=== PATIENT | female | born 1935 | race Caucasian/White ===

== ENCOUNTER 2019-03-11 21:12 | Observation (INO) | payer MEDICARE, BC ==
[2019-03-11] MEDS ORDERED: IPRATROPIUM-ALBUTEROL 3 ML NEB INHALATION STA (21:45)
[2019-03-11 22:17] LABS: Basophils % (A) 0 %; Eosinophils # (A) 0.1 k/uL (0-0.7); Eosinophils % (A) 2 %; HCT 43.4 % (34.0-46.0); HGB 13.6 gm/dL (11.4-16.0); Lymphocytes # (A) 1.1 k/uL (1.0-4.8); Lymphocytes % (A) 22 %; MCH 29.3 pg (25.0-35.0); MCHC 31.3 g/dL (31.0-37.0); MCV 93.3 fL (80.0-100.0); Mean Platelet Volume 6.3; Monocytes # (A) 0.3 k/uL (0-1.0); Monocytes % (A) 6 %; Neutrophils # (A) 3.4 k/uL (1.3-7.7); Neutrophils % (A) 68 %; Platelet Count 168 k/uL (150-450); RBC 4.65 m/uL (3.80-5.40); RDW 14.5 % (11.5-15.5); WBC 4.9 k/uL (3.8-10.6)
[2019-03-11 22:18] LABS: Albumin 3.4 g/dL (3.5-5.0); Calcium 9.3 mg/dL (8.4-10.2); Magnesium 2.2 mg/dL (1.6-2.3); Potassium 4.2 mmol/L (3.5-5.1); Total Bilirubin 0.5 mg/dL (0.2-1.3); Total Protein 5.6 g/dL (6.3-8.2)
--- NOTE | 2019-03-11 22:18 | ED ---
Chest Pain HPI - General Chief Complaint: Chest Pain Stated Complaint: SOB, Chest Pain Time Seen by Provider: 03/11/19 21:29 Source: patient, family Mode of arrival: wheelchair Limitations: no limitations - History of Present Illness Initial Comments: The patient is an 83-year-old female presents the emergency room with complaint of chest pain. She states this has been going on for 2 weeks. It has been constant and progressive in nature. Is located substernally without radiation. Any palliative or provocative factors. She has no previous cardiac history. Does admit that it makes her feel short of breath. She feels as if there is an "elephant sitting on her chest". She states that she has had previous stress testing and a catheterization. The last cath was greater than 10 years ago. She does have a history of asthma thought it was her asthma acting up. Her inhalers have not provided any relief. She denies associated nausea, vomiting or diaphoresis. The ripping or tearing sensation to her back. Denies a pleuritic chest pain. Does admit to bilateral lower extremity swelling. She did see her primary care physician or place her on Lasix. She has been taking the medications as directed. She has had worsening incontinence because of the medication. She denies hematuria or dysuria. Denies any rectal incontinence. No report of any fevers or chills. Denies a history of congestive heart failure. Her primary care physician did recommend that she see a pesticide control inspector. - Related Data Home Medications Medication Instructions Recorded Confirmed Cholecalciferol [Vitamin D3] 2,000 unit PO DAILY 12/05/15 03/11/19 HYDROcodone/APAP 5-325MG [[place] 1 tab PO Q4-6H PRN 12/05/15 03/11/19 5-325] Omeprazole [PriLOSEC] 20 mg PO DAILY 12/05/15 03/11/19 traMADol HCL [Tramadol HCl] 50 mg PO BID PRN 12/06/15 03/11/19 ALPRAZolam [Xanax] 0.25 mg PO HS PRN 03/11/19 03/11/19 Albuterol Inhaler [Ventolin Hfa 2 puff INHALATION RT-Q6H PRN 03/11/19 03/11/19 Inhaler] Albuterol Nebulized [Ventolin 2.5 mg INHALATION RT-Q6H PRN 03/11/19 03/11/19 Nebulized] Aspirin [Adult Low Dose Aspirin EC] 81 mg PO DAILY PRN 03/11/19 03/11/19 Oxybutynin Chloride 5 mg PO BID 03/11/19 03/11/19 Allergies Allergy/AdvReac Type Severity Reaction Status Date / Time adhesive tape AdvReac Unknown Verified 03/11/19 21:57 Review of Systems ROS Statement: Those systems with pertinent positive or pertinent negative responses have been documented in the HPI. ROS Other: All systems not noted in ROS Statement are negative. EKG Findings - EKG Comments: EKG Findings:: EKG demonstrates normal sinus rhythm with ventricular rate of 88. ME interval 128. QRS 86. QTC of 433. There are Q waves noted in leads 3 and [address]VF. No acute ST segment elevations or depressions concerning for ischemic changes. A repeat EKG is performed at 12:30. EKG continues to demonstrate a normal sinus rhythm with ventricular rate of 90. ME interval 134, QRS 88 and a QTC of 457. There are no elevations or depressions concerning for ischemic changes Past Medical History Past Medical History: Asthma, GERD/Reflux, Hypertension, Osteoarthritis (OA) History of Any Multi-Drug Resistant Organisms: None Reported Past Surgical History: Back Surgery, Cholecystectomy, Hysterectomy, Joint Replacement, Orthopedic Surgery Additional Past Surgical History / Comment(s): bilateral hip replacements, bilateral shoulder replacements, bilateral knee replacements, back surgery, SHOULDER, BILAT KNEE bilateral cataract surgery left hand surgery, carpal tunnel surgery Past Anesthesia/Blood Transfusion Reactions: Motion Sickness, Postoperative Nausea & Vomiting (PONV) Past Psychological History: No Psychological Hx Reported Smoking Status: Never smoker Past Alcohol Use History: None Reported Past Drug Use History: None Reported - Past Family History Mother Family Medical History: Coronary Artery Disease (CAD) General Exam Limitations: no limitations General appearance: alert, in no apparent distress Head exam: Present: atraumatic, normocephalic, normal inspection Eye exam: Present: normal appearance, PERRL, EOMI. Absent: scleral icterus, co njunctival injection, periorbital swelling ENT exam: Present: normal exam, mucous membranes moist Neck exam: Present: normal inspection. Absent: tenderness, meningismus, lymphadenopathy Respiratory exam: Present: normal lung sounds bilaterally. Absent: respiratory distress, wheezes, rales, rhonchi, stridor Cardiovascular Exam: Present: regular rate, normal rhythm, normal heart sounds. Absent: systolic murmur, diastolic murmur, rubs, gallop, clicks GI/Abdominal exam: Present: soft, normal bowel sounds. Absent: distended, tenderness, guarding, rebound, rigid Extremities exam: Present: normal inspection, full ROM, normal capillary refill. Absent: tenderness, pedal edema, joint swelling, calf tenderness Back exam: Present: normal inspection Neurological exam: Present: alert, oriented X3, CN II-XII intact Psychiatric exam: Present: normal affect, normal mood Skin exam: Present: warm, dry, intact, normal color. Absent: rash Course Vital Signs 03/11/19 03/11/19 03/11/19 21:18 22:12 22:18 Temperature 98.6 F Pulse Rate 97 75 83 Respiratory 22 Rate Blood Pressure 142/77 O2 Sat by Pulse 98 Oximetry 03/11/19 03/12/19 03/12/19 23:21 01:00 02:00 Temperature 98.5 F 98.5 F Pulse Rate 80 74 74 Respiratory 20 16 20 Rate Blood Pressure 130/76 147/79 113/74 O2 Sat by Pulse 97 97 97 Oximetry - Reevaluation(s) Reevaluation #1: The patient is reevaluated and continues to have chest pain. She is started on a nitro drip and a repeat EKG is performed. Repeat EKG demonstrates Q waves in lead 3 and aVF. Continues to demonstrate a normal sinus rhythm with a ventricular rate of 90. ME interval 134 QRS 88 QTC of 457. No acute ST segment elevations or depressions. 03/12/19 00:30 Chest Pain MDM - Differential Diagnosis ACS - MDM The patient was seen by myself in room 7. She is immediately hooked up to continuous pulse ox and cardiac monitoring. She did take 324 mgrams of aspirin before coming to the emergency room. A 12-lead EKG was performed. I did recommend laboratory studies. The patient does have a chest x-ray performed. I did provide her with a DuoNeb breathing treatment because of her history of asthma. Upon return results I did discuss them with the patient. I did discuss diagnosis, differential and treatment options. The patient does have persistent pain. I did start her on a nitro drip. Upon reevaluation the patient has an improvement in her pain being on 5 mcg of nitro. Because of this I did recommend admission to the hospital for which the patient did agree. I did call discuss the case with Dr. Henderson. He did accept admission of the patient. He does request that I consult cardiology for the patient's chest pain. She was also given 2 g of morphine for diffused generalized pain. She did remain in stable condition was transferred to the floor Disposition Clinical Impression: Chest pain Disposition: ADMITTED IP TO THIS HOSP Condition: Stable Is patient prescribed a controlled substance at d/c from ED?: No Decision to Admit Reason: Admit from EC Decision Date: 03/12/19 Decision Time: 01:29
[2019-03-11 22:28] LABS: INR 0.9 (<1.2)
[2019-03-11 22:50] LABS: Prothrombin Time 9.4 sec (9.0-12.0)
[2019-03-11 22:52] LABS: Partial Thromboplastin Time 19.9 sec (22.0-30.0)
--- NOTE | 2019-03-11 23:36 | XR ---
EXAM: XR Chest, 2 Views CLINICAL HISTORY: ITS.REASON XR Reason: Chest Pain TECHNIQUE: Frontal and lateral views of the chest. COMPARISON: None FINDINGS: Hardware: None. Lungs/pleura: Mild bibasilar atelectasis. No focal consolidation. No pleural effusion or pneumothorax. Heart/mediastinum: Mild enlargement of the cardiac silhouette. Atherosclerotic calcifications in the aorta. Soft tissues: Unremarkable. Bones: No acute fracture. Bilateral shoulder replacements. Probable resection changes of the distal right clavicle. Degenerative changes of the spine with age-indeterminate compression deformities in the lower and midthoracic spine. Upper abdomen: Cholecystectomy clips in the right upper quadrant. IMPRESSION: No focal consolidation.
[2019-03-11 23:51] LABS: Appearance,Urine Clear (Clear); Bilirubin,Urine Negative (Negative); Blood,Urine Negative (Negative); Color,Urine Yellow; Glucose,Urine (UA) Negative (Negative); Ketones,Urine Negative (Negative); Leukocyte Esterase,Urine Negative (Negative); Nitrite,Urine Negative (Negative); PH, Urine 5.5 (5.0-8.0); Protein,Urine Negative (Negative); Specific Gravity,Urine 1.017 (1.001-1.035); Urobilinogen,Urine <2.0 mg/dL (<2.0)
[2019-03-12] MEDS ORDERED: NITROGLYCERIN-D5W PMX 50 MG in DEXTROSE/WATER 1 250ML.BAG IV ONE (00:05)
[2019-03-12] MEDS ORDERED: NALOXONE 0.4 MG/ML 1 ML VIAL IV PRN (01:17)
[2019-03-12] MEDS ORDERED: traMADol 50 MG TAB PO PRN (01:26)
[2019-03-12] MEDS ORDERED: ALPRAZolam 0.25 MG TAB PO PRN (01:26)
[2019-03-12] MEDS ORDERED: ALBUTEROL NEBULIZED 2.5 MG/3 ML INHALATION PRN (01:26)
[2019-03-12] MEDS ORDERED: HYDROcodone/APAP 5-325MG 1 EACH TAB PO PRN (01:26)
[2019-03-12] MEDS ORDERED: MORPHINE SULFATE 2 MG/ML SYRINGE IVP ONE (02:11)
[2019-03-12] MEDS ORDERED: PANTOPRAZOLE 40 MG TABLET PO SCH (07:30)
[2019-03-12] MEDS ORDERED: OXYBUTYNIN CHLORIDE 5 MG TAB PO SCH (09:00)
[2019-03-12] MEDS ORDERED: CHOLECALCIFEROL 1,000 UNIT TAB PO SCH (09:00)
[2019-03-12] MEDS ORDERED: ASPIRIN 81 MG PO SCH (09:00)
--- NOTE | 2019-03-12 09:59 | CONS ---
CONSULTATION CHIEF COMPLAINT: Chest pain. Lesvia is an 83-year-old lady with a history of asthma who presents to hospital complaining of chest pain. She describes it as a right-sided focal chest discomfort that she describes as a pressure without definite radiation to neck, arm or back, without clear-cut relieving or exacerbating factors. These symptoms have been going on for the last several weeks. Her pain is reproducible. She came to the emergency room and had an EKG that was within normal limits and admitted to hospital with 2 sets of cardiac enzymes that are both negative. She is currently on IV nitroglycerin, which is not making any difference to her. Patient apparently had a cardiac catheterization 10 years ago that was within normal limits. Her chest pain seems musculoskeletal in origin. Chest x-ray does not reveal any fractured ribs. I am going to obtain a D- dimer to rule out pulmonary embolism. I will obtain a 2D echo to rule out pericardial disease. I will ambulate her. If she is feeling well, she may be discharged home and undergo an outpatient stress test. If not, if she is here I will obtain a dobutamine echo on her on Thursday to complete her workup. PAST MEDICAL HISTORY: Significant for asthma. MEDICATIONS: Medications at home included: 1. Aspirin. 2. Vitamin D. 3. Prilosec. 4. Xanax. 5. Albuterol. 6. [place]. 7. Tramadol. 8. Potassium. ALLERGIES: ADHESIVE TAPE. FAMILY HISTORY: Negative for premature coronary artery disease. SOCIAL HISTORY: Negative for smoking, EtOH abuse or drug abuse. REVIEW OF SYSTEMS: HEENT is unremarkable. CARDIAC: As described above. RESPIRATORY: As described above. GI: Negative. GENITOURINARY: Negative. ALLERGY/IMMUNOLOGY: Negative. SKIN: Negative. MUSCULOSKELETAL: Significant for arthritis. PSYCHOSOCIAL: Negative. ENDOCRINE/DERM: Negative. CONSTITUTIONAL: Negative. ONCOLOGICAL: Negative. Rest of the system review is not relevant. PHYSICAL EXAMINATION: Patient is comfortable at rest. Vital signs are stable. There is no jugular venous distention. Carotid upstroke is normal. There is no bruit. Chest exam reveals good air entry bilaterally. Heart exam reveals first and second heart sounds. No gallop. Has a systolic murmur at the left lower sternal border. Abdomen is soft. Examination of extremities did not reveal edema. Peripheral pulses are felt. LABS: The cardiac enzymes are negative. Potassium is 4.2. Creatinine is 0.9. Hemoglobin is 13.6. ASSESSMENT: 1. Precordial chest pain. 2. History of asthma. PLAN: Patient's chest discomfort is probably musculoskeletal. She has reproducible chest pain. I will follow the echocardiogram and D-dimer and decide on further course of action. Thank you for allowing us to participate in the care of this pleasant lady. MMBUCKL / IJN: [id number] /
[2019-03-12] MEDS ORDERED: FLUTICASONE 50MCG/SPRAY NASAL 16GM EA NOSTRIL SCH (11:00)
[2019-03-12] MEDS ORDERED: NAPROXEN 250 MG TAB PO PRN (11:00)
[2019-03-12] MEDS ORDERED: LORATADINE 10 MG TAB PO SCH (11:00)
[2019-03-12 11:23] VITALS: BP 124/53; PULSE 65; RESP 20; TEMP 98.2
--- NOTE | 2019-03-12 13:21 | P.HPIM ---
History of Present Illness H&P Date: 03/12/19 HISTORY AND PHYSICAL AND DISCHARGE SUMMARY: This is an 83-year-old female patient of Dr. Saturnino Fairchild with past medical history of hypertension, mild persistent asthma, gastroesophageal reflux disease, generalized osteoarthritis, rheumatoid arthritis, insomnia, overactive bladder. Patient states that she has been dealing with chest pain for the past 3 weeks. She states she even went for mammogram because of the pain. She does complain of tenderness. She denies any injury to the area. She states is there constantly but does not change with movement or with deep breath. She states she has had some recent lower extremity edema which has resolved and she has been urinating well. Patient complains of thick sinus drainage which has been going on for ORIF while. It causes her to have shortness of breath. Her lungs are clear at this point. Patient came into [facility] emergency center for evaluation. She has been afebrile, heart rate in the 70s and 80s, blood pressure 149/70 and pulse ox 99% on 2 L nasal cannula. Chest x-ray shows no focal consolidation. CBC all her joints were within normal limits. BUN 34 and creatinine 0.91. Blood sugar 115. Liver function tests within normal limits. Troponins have been negative on 3 draws. Lipase 139, urinalysis negative, proBNP 256. Patient was started on a nitroglycerin drip, IV morphine and nebulizer treatments and placed as an observation status and cardiology consult requested. Cardiology has ordered d-dimer and echocardiogram. Nitroglycerin drip was discontinued. Patient states cardiology is planning for stress test in his office. We will plan to discharge the patient home today once echocardiogram has been obtained. Echocardiogram reveals EF of 55-60%, mild mitral regurgitation, tricuspid regurgitation, no pulmonary hypertension. Review of Systems All systems: negative Constitutional: Denies chills, Denies fever Eyes: denies blurred vision, denies pain Ears, nose, mouth and throat: Reports nasal congestion, Reports post-nasal drip, Denies dysphagia, Denies headache, Denies sinus pain, Denies sinus pressure, Denies sore throat Cardiovascular: Reports chest pain, Reports shortness of breath, Denies dyspnea on exertion, Denies edema, Denies leg edema, Denies lightheadedness, Denies palpitations, Denies syncope Respiratory: Reports dyspnea, Denies cough, Denies cough with sputum, Denies excessive sputum, Denies hemoptysis, Denies home oxygen, Denies wheezing Gastrointestinal: Denies abdominal pain, Denies diarrhea, Denies loss of appetite, Denies nausea, Denies vomiting Genitourinary: Denies dysuria, Denies hematuria Musculoskeletal: Denies frequent falls, Denies gait dysfunction, Denies myalgias Integumentary: Denies pruritus, Denies rash, Denies wounds Neurological: Denies aphasia, Denies change in mentation, Denies change in speech, Denies gait dysfunction, Denies numbness, Denies seizures, Denies weakness Psychiatric: Denies anxiety, Denies depression Endocrine: Denies fatigue, Denies weight change Past Medical History Past Medical History: Asthma, GERD/Reflux, Hypertension, Osteoarthritis (OA), Rheumatoid Arthritis (RA) History of Any Multi-Drug Resistant Organisms: None Reported Past Surgical History: Back Surgery, Cholecystectomy, Hysterectomy, Joint Replacement, Orthopedic Surgery Additional Past Surgical History / Comment(s): bilateral hip replacements, sapphire ateral shoulder replacements, bilateral knee replacements, back surgery, SHOULDER, BILAT KNEE bilateral cataract surgery left hand surgery, carpal tunnel surgery Past Anesthesia/Blood Transfusion Reactions: Motion Sickness, Postoperative Nausea & Vomiting (PONV) Past Psychological History: No Psychological Hx Reported Smoking Status: Never smoker Past Alcohol Use History: None Reported Additional Past Alcohol Use History / Comment(s): Patient is a lifelong nonsmoker. She denies any marijuana, street drug or alcohol use. Past Drug Use History: None Reported - Past Family History Mother Family Medical History: Coronary Artery Disease (CAD) Additional Family Medical History / Comment(s): Mother at age 72 from heart failure. Father Additional Family Medical History / Comment(s): Father is with history of osteoarthritis and rheumatoid arthritis. Sister(s) Additional Family Medical History / Comment(s): Patient has one sister with rheumatoid arthritis. Patient does not have any brothers. Patient has one daughter with history of thyroid cancer. Patient has one son with hypertension and one with no major medical problems. Medications and Allergies Home Medications Medication Instructions Recorded Confirmed Type Cholecalciferol [Vitamin D3] 2,000 unit PO DAILY 12/05/15 03/11/19 History HYDROcodone/APAP 5-325MG [[place] 1 tab PO Q4-6H PRN 12/05/15 03/11/19 History 5-325] Omeprazole [PriLOSEC] 20 mg PO DAILY 12/05/15 03/11/19 History traMADol HCL [Tramadol HCl] 50 mg PO BID PRN 12/06/15 03/11/19 History ALPRAZolam [Xanax] 0.25 mg PO HS PRN 03/11/19 03/11/19 History Albuterol Inhaler [Ventolin Hfa 2 puff INHALATION RT-Q6H PRN 03/11/19 03/11/19 History Inhaler] Albuterol Nebulized [Ventolin 2.5 mg INHALATION RT-Q6H PRN 03/11/19 03/11/19 History Nebulized] Aspirin [Adult Low Dose Aspirin EC] 81 mg PO DAILY PRN 03/11/19 03/11/19 History Oxybutynin Chloride 5 mg PO BID 03/11/19 03/11/19 History Fluticasone Nasal [place]of[place] [Flonase 2 spray EA NOSTRIL DAILY #1 device 03/12/19 Rx Nasal Tofte] Loratadine [Claritin] 10 mg PO DAILY #0 tab 03/12/19 Rx Naproxen [Naprosyn] 250 mg PO BID #10 tab 03/12/19 Rx Potassium Chloride [Klor-Con 20] 20 meq PO BID 03/12/19 03/12/19 History Allergies Allergy/AdvReac Type Severity Reaction Status Date / Time adhesive tape AdvReac Unknown Verified 03/11/19 21:57 Physical Exam Vitals: Vital Signs Temp Pulse Pulse Resp BP BP Pulse Ox 03/12/19 09:15 76 03/12/19 09:06 66 03/12/19 08:00 98.6 F 80 18 149/70 99 03/12/19 04:00 98.1 F 76 16 138/66 99 03/12/19 03:12 98 F 88 20 142/63 98 03/12/19 02:00 98.5 F 74 20 113/74 97 03/12/19 01:00 74 16 147/79 97 03/11/19 23:21 98.5 F 80 20 130/76 97 03/11/19 22:18 83 03/11/19 22:12 75 03/11/19 21:18 98.6 F 97 22 142/77 98 Intake and Output 04/11/1703/12/19 03/12/19 22:59 06:59 14:59 Other: Voiding Method Diaper Incontinent # Voids 1 Weight 81.647 kg 84.6 kg Gen: This is an obese 83-year-old female. She is resting bed and appears to be comfortable and in no acute distress. HEENT: Head is atraumatic, normocephalic. Pupils equal, round. Sclerae is anicteric. NECK: Supple. No JVD. No lymphadenopathy. No thyromegaly. LUNGS: Clear to auscultation. No wheezes or rhonchi. No intercostal retractions. Positive tenderness to the chest wall. HEART: Regular rate and rhythm. Systolic murmur. ABDOMEN: Soft. Bowel sounds are present. No masses. No tenderness. EXTREMITIES: No pedal edema. No calf tenderness. Rheumatoid deformities noted to bilateral hands. NEUROLOGICAL: Patient is awake, alert and oriented x3. Cranial nerves 2 through 12 are grossly intact. Results CBC & Chem 7: 03/11/19 21:55 03/11/19 21:55 Labs: Abnormal Lab Results - Last 24 Hours (Table) 03/11/19 03/11/19 Range/Units 21:55 21:55 APTT 19.9 L (22.0-30.0) sec BUN 34 H (7-17) mg/dL Glucose 115 H (74-99) mg/dL Total Protein 5.6 L (6.3-8.2) g/dL Albumin 3.4 L (3.5-5.0) g/dL Thrombosis Risk Factor Assmnt - DVT/VTE Prophylaxis DVT/VTE Prophylaxis: Pharmacologic Prophylaxis ordered - Choose All That Apply Any of the Below Risk Factors Present?: Yes Each Factor Represents 1 point: Obesity (BMI >25), Swollen legs (current) Other Risk Factors: Yes Each Risk Factor Represents 3 Points: Age 75 years or older Other congenital or acquired thrombophilia - If yes, enter type in comment: No Thrombosis Risk Factor Assessment Total Risk Factor Score: 5 Thrombosis Risk Factor Assessment Level: High Risk Assessment and Plan Plan: 1. Chest pain with negative troponins. Acute coronary syndrome ruled out. Chest pain most likely musculoskeletal. Cardiology consult appreciated. Echocardiogram to be obtained prior to discharge. Patient started on Naprosyn 250 mg twice daily for 5 days. 2. Mild intermittent asthma, without exacerbation. Continue albuterol nebulizer treatments every 6 hours as needed 3. Gastroesophageal reflux disease. Continue Protonix daily. 4. Overactive bladder. Continue oxybutynin 5 mg twice daily. 5. Generalized osteoarthritis. Continue tramadol as needed or [place]. 6. Insomnia. Continue Xanax at bedtime as needed. 7. Seasonal ALLERGIES. Patient started on Claritin and Flonase. Patient places an observation status. Discharge plan: Home today with follow-up with Dr. Harden for stress test in his o ffice. Discharge Medication List Cholecalciferol [Vitamin D3] 2,000 unit PO DAILY 12/05/15 [History] HYDROcodone/APAP 5-325MG [[place] 5-325] 1 tab PO Q4-6H PRN 12/05/15 [History] Omeprazole [PriLOSEC] 20 mg PO DAILY 12/05/15 [History] traMADol HCL [Tramadol HCl] 50 mg PO BID PRN 12/06/15 [History] ALPRAZolam [Xanax] 0.25 mg PO HS PRN 03/11/19 [History] Albuterol Inhaler [Ventolin Hfa Inhaler] 2 puff INHALATION RT-Q6H PRN 03/11/19 [History] Albuterol Nebulized [Ventolin Nebulized] 2.5 mg INHALATION RT-Q6H PRN 03/11/19 [History] Aspirin [Adult Low Dose Aspirin EC] 81 mg PO DAILY PRN 03/11/19 [History] Oxybutynin Chloride 5 mg PO BID 03/11/19 [History] Fluticasone Nasal [place] [Flonase Nasal [place]] 2 spray EA NOSTRIL DAILY #1 device 03/12/19 [Rx] Loratadine [Claritin] 10 mg PO DAILY #0 tab 03/12/19 [Rx] Naproxen [Naprosyn] 250 mg PO BID #10 tab 03/12/19 [Rx] Potassium Chloride [Klor-Con 20] 20 meq PO BID 03/12/19 [History] Impression and plan of care have been directed as dictated by the signing physician. Naty Landis nurse practitioner acting as scribe for signing physician.
--- NOTE | 2019-03-13 10:24 | ECHOF ---
Referral Reason:eval LV function MEASUREMENTS -------- HEIGHT: 132.1 cm WEIGHT: 84.4 kg BP: IVSd: 1.8 cm (0.6 - 1.1) LVIDd: 3.4 cm (3.9 - 5.3) LVPWd: 1.0 cm (0.6 - 1.1) IVSs: 1.5 cm LVIDs: 2.7 cm LVPWs: 1.5 cm LA Diam: 4.2 cm (2.7 - 3.8) LAESV Index (A-L): 29.56 ml/m Ao Diam: 3.3 cm (2.0 - 3.7) LA Diam: 3.6 cm (2.7 - 3.8) MV EXCURSION: 19.523 mm (> 18.000) MV EF SLOPE: 104 mm/s (70 - 150) EPSS: 0.9 cm MV E Julito: 0.69 m/s MV DecT: 221 ms MV A Julito: 1.33 m/s MV E/A Ratio: 0.52 RAP: 5.00 mmHg RVSP: 17.86 mmHg FINDINGS -------- Sinus rhythm. This was a technically adequate study. The left ventricular size is normal. There is borderline concentric left ventricular hypertrophy. Overall left ventricular systolic function is normal with, an EF between 55 - 60 %. The right ventricle is normal in size. The left atrium is mildly dilated. LA is midly dilated 29-33ml/m2. The right atrial size is normal. There is mild aortic valve sclerosis. There is no evidence of aortic regurgitation. Mild mitral annular calcification present. Mild mitral regurgitation is present. Mild tricuspid regurgitation present. There is no evidence of pulmonary hypertension. The right v entricular systolic pressure, as measured by Doppler, is 17.86mmHg. There is no pulmonic regurgitation present. The aortic root size is normal. Echo free space represents a pericardial fat pad. CONCLUSIONS -------- 1. The left ventricular size is normal. 2. There is borderline concentric left ventricular hypertrophy. 3. Overall left ventricular systolic function is normal with, an EF between 55 - 60 %. 4. The right ventricle is normal in size. 5. The left atrium is mildly dilated. 6. LA is midly dilated 29-33ml/m2. 7. The right atrial size is normal. 8. There is mild aortic valve sclerosis. 9. Mild mitral annular calcification present. 10. Mild mitral regurgitation is present. 11. Mild tricuspid regurgitation present. 12. There is no evidence of pulmonary hypertension. 13. The right ventricular systolic pressure, as measured by Doppler, is 17.86mmHg. 14. There is no pulmonic regurgitation present. 15. The aortic root size is normal. 16. Echo free space represents a pericardial fat pad. FILLING TECHNICIAN: Donna Hamm RDCS
== END 2019-03-12 13:51 | disposition home or self-care (01) ==
LOC: EC 21:12 → 1SOBS 03-12 01:25 → 3SCARD 03-12 02:18
PROVIDERS: ADMIT Internal Medicine; ATTEND Internal Medicine
DX: R07.89 Other chest pain (principal); G47.00 Insomnia, unspecified; I10 Essential (primary) hypertension; J45.30 Mild persistent asthma, uncomplicated; K21.9 Gastro-esophageal reflux disease without esophagitis; J30.9 Allergic rhinitis, unspecified; M06.9 Rheumatoid arthritis, unspecified; N32.81 Overactive bladder; I08.1 Rheumatic disorders of both mitral and tricuspid valves; M15.9 Polyosteoarthritis, unspecified; Z91.048 Other nonmedicinal substance allergy status; Z79.82 Long term (current) use of aspirin; Z79.899 Other long term (current) drug therapy; Z90.710 Acquired absence of both cervix and uterus; Z96.611 Presence of right artificial shoulder joint; Z96.612 Presence of left artificial shoulder joint; Z96.643 Presence of artificial hip joint, bilateral; Z96.653 Presence of artificial knee joint, bilateral; Z82.61 Family history of arthritis; Z82.49 Family history of ischemic heart disease and other diseases of the circulatory system
CPT/HCPCS: 96365; 96366; 96375; 99285; 36415; 94640 ×2; 93005 ×2; 93306; 85379; 83880; 80053; 83690; 83735; 84484 ×2; 85025; 85610; 85730; 81003; 71046; G0378 ×2; J2270

== ENCOUNTER → 2019-05-04 | Outpatient (CLI) | payer MEDICARE, BC ==
--- NOTE | 2019-05-04 23:41 | MR ---
EXAMINATION TYPE: MR ankle LT wo con DATE OF EXAM: 05/04/2019 COMPARISON: None HISTORY: Lt tibia bone lesion Standard multiplanar, multisequence MRI departmental protocol Multiplanar, multisequence images of the left ankle were acquired. FINDINGS: Ankle mortise is anatomic. The collateral ligaments appear intact. There is irregular 1.5 c m area of decreased signal in the posterior calcaneus that could relate to old bone infarct. Subtalar joint is intact. The talus is intact. Distal fibula is intact. The plantar fascia is intact. The Ach illes tendon is intact. The medial and lateral flexor tendons of the ankle appear intact. There is hanson bcutaneous edema around the lower leg. There is sharply marginated 3 x 1.5 cm area of decreased signal on the T1 images involving the distal tibial metaphysis and epiphysis. This has slight increased signal on the T2 images. I see no fractur e line. There is no surrounding edema. There is no expansion. Lesion extends almost to the articular cortex. 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 There is similar focus in the p osterior calcaneus. No fracture seen. No evidence of ligament or tendon tear. Subcutaneous edema around the lower leg and ankle.
== END | disposition home or self-care (01) ==
LOC: RADMRIMAIN 15:41
PROVIDERS: ATTEND Podiatrist Foot & Ankle Surgery
DX: M89.9 Disorder of bone, unspecified (principal)

== ENCOUNTER 2019-06-25 23:12 | Emergency (ER) | payer MEDICARE, BC ==
[2019-06-25 23:30] VITALS: BP 116/64; PULSE 72; RESP 16; TEMP 98.1
[2019-06-26] MEDS ORDERED: LIDOCAINE 1% INJ 10MG/ML (20 ML MDV) SQ STA (00:12)
[2019-06-26] MEDS ORDERED: CEPHALEXIN 500MG STARTER PACK 4 CAP BTL PO STA (01:06)
--- NOTE | 2019-06-26 01:10 | ED ---
General Adult HPI - General Chief complaint: Wound/Laceration Stated complaint: Laceration lt leg Time Seen by Provider: 06/25/19 23:50 Source: patient, RN notes reviewed, old records reviewed Mode of arrival: wheelchair Limitations: physical limitation - History of Present Illness Initial comments: 83-year-old female patient presents ED chief complaint laceration to left anterior tibial region. Patient reports that she bumped her leg against the skis of her walker causing laceration, reports that she has very thin skin. Denies any falls or any other trauma. Reports that tetanus is up-to-date. Systemic: Pt denies fatigue, fever/chills, rash. Pt denies weakness, night sweats, weight loss. Neuro: Pt denies headache, visual disturbances, syncope or pre-syncope. HEENT: Pt denies ocular discharge or irritation, otalgia, rhinorrhea, pharyngitis or notable lymphadenopathy. Cardiopulmonary: Pt denies chest pain, SOB, heart palpitations, dyspnea on exertion. Abdominal/GI: Pt denies abdominal pain, n/v/d. : Pt denies dysuria, burning w/ urination, frequency/urgency. Denies new onset urinary or bowel incontinence. MSK: Pt denies myalgia, loss of strength or function in extremities. Neuro: Pt denies new onset weakness, paresthesias. - Related Data Home Medications Medication Instructions Recorded Confirmed Cholecalciferol [Vitamin D3 (25 2,000 unit PO DAILY 12/05/15 03/11/19 Mcg = 1000 Iu)] HYDROcodone/APAP 5-325MG [[place] 1 tab PO Q4-6H PRN 12/05/15 03/11/19 5-325] Omeprazole [PriLOSEC] 20 mg PO DAILY 12/05/15 03/11/19 traMADol HCL [Tramadol HCl] 50 mg PO BID PRN 12/06/15 03/11/19 ALPRAZolam [Xanax] 0.25 mg PO HS PRN 03/11/19 03/11/19 Albuterol Inhaler [Ventolin Hfa 2 puff INHALATION RT-Q6H PRN 03/11/19 03/11/19 Inhaler] Albuterol Nebulized [Ventolin 2.5 mg INHALATION RT-Q6H PRN 03/11/19 03/11/19 Nebulized] Aspirin [Adult Low Dose Aspirin EC] 81 mg PO DAILY PRN 03/11/19 03/11/19 Oxybutynin Chloride 5 mg PO BID 03/11/19 03/11/19 Potassium Chloride [Klor-Con 20] 20 meq PO BID 03/12/19 03/12/19 Previous Rx's Medication Instructions Recorded Fluticasone Nasal [place] [Flonase 2 spray EA NOSTRIL DAILY #1 device 03/12/19 Nasal [place]] Loratadine [Claritin] 10 mg PO DAILY #0 tab 03/12/19 Naproxen [Naprosyn] 250 mg PO BID #10 tab 03/12/19 Cephalexin [Keflex] 500 mg PO Q6HR 3 Days #12 cap 06/26/19 Allergies Allergy/AdvReac Type Severity Reaction Status Date / Time adhesive tape AdvReac Unknown Verified 06/25/19 23:30 Review of Systems ROS Statement: Those systems with pertinent positive or pertinent negative responses have been documented in the HPI. ROS Other: All systems not noted in ROS Statement are negative. Past Medical History Past Medical History: Asthma, GERD/Reflux, Hearing Disorder / Deafness, Hypertension, Osteoarthritis (OA), Rheumatoid Arthritis (RA) History of Any Multi-Drug Resistant Organisms: None Reported Past Surgical History: Back Surgery, Cholecystectomy, Hysterectomy, Joint Replacement, Orthopedic Surgery Additional Past Surgical History / Comment(s): bilateral hip replacements, bilateral shoulder replacements, bilateral knee replacements, back surgery, SHOULDER, BILAT KNEE bilateral cataract surgery left hand surgery, carpal tunnel surgery Past Anesthesia/Blood Transfusion Reactions: Motion Sickness, Postoperative Nausea & Vomiting (PONV) Past Psychological History: No Psychological Hx Reported Smoking Status: Never smoker Past Alcohol Use History: None Reported Past Drug Use History: None Reported - Past Family History Father Additional Family Medical History / Comment(s): Father is with history of osteoarthritis and rheumatoid arthritis. Sister(s) Additional Family Medical History / Comment(s): Patient has one sister with rheumatoid arthritis. Patient does not have any brothers. Patient has one daughter with history of thyroid cancer. Patient has one son with hypertension and one with no major medical problems. Mother Family Medical History: Coronary Artery Disease (CAD) Additional Family Medical History / Comment(s): Mother at age 72 from heart failure. General Exam - General Exam Comments Initial Comments: Constitutional: NAD, AOX3, Pt has pleasant affect. HEENT: NC/AT, trachea midline, neck supple, no lymphadenopathy. Posterior pharynx non erythematous, without exudates. External ears appear normal, without discharge. Mucous membranes moist. Eyes PERRLA, EOM intact. There is no scleral icterus. No pallor noted. Cardiopulmonary: RRR, no murmurs, rubs or gallops, no JVD noted. Lungs CTAB in anterior and posterior plummer. No peripheral edema. Abdominal exam: Abdomen soft and non-distended. Abdomen non-tender to palpation in all 4 quadrants. Bowel sounds active in LLQ. No hepatosplenomegaly. No ecchymosis Neuro: CN II-XII grossly intact. No nuchal rigidity. No raccon eyes, no knott sign, no hemotympanum. No cervical spinal tenderness. MSK: The centimeters stellate laceration, approximated with 10 simple interrupted sutures. Cleaned with Betadine. No posterior calf tenderness bilaterally, homans sign negative bilaterally. Posterior tibialis and radial pulse +2 bilaterally. Sensation intact in upper and lower extremities. Full active ROM in upper and lower extremities, 5/5 stregnth. Limitations: physical limitation Course Vital Signs 06/25/19 23:25 Temperature 98.1 F Pulse Rate 72 Respiratory 16 Rate Blood Pressure 116/64 O2 Sat by Pulse 94 L Oximetry Procedures - Laceration Laceration #1 Consent Obtained: verbal consent Indication: laceration Site: other (LLE ) Size (cm): 5 Description: stellate Depth: simple, single layer Anesthetic Used: lidocaine 1% Anesthesia Technique: local infiltration Amount (mls): 3 Pre-repair: wound explored (cleaned with betadine), deep structures intact Type of Sutures: nylon Size of Sutures: 5-0 Number of Sutures: 10 Technique: simple, interrupted Patient Tolerated Procedure: well, no complications Medical Decision Making - Medical Decision Making 83-year-old female patient presents to ED with laceration. Patient also stable, afebrile. Tetanus up-to-date. Approximate 10 simple interrupted sutures. Patient requests patient discharged with antibiotics. Patient will monitor for infection, any other complications. Return to ER patient worsens. Case discussed with Dr. Tinoco. Disposition Clinical Impression: Laceration Disposition: HOME SELF-CARE Condition: Stable Instructions (If sedation given, give patient instructions): Laceration (ED) Additional Instructions: Patient to adhere to previously discussed treatment plan and will take medication(s) as directed. Patient to follow up with PCP in 1-2 days. Patient to return to ED if symptoms do not improve. Please return for suture removal: Hand: 7-10 days Face: 5 days Chest/abdomen: 12-14 days Extremities: 7-10 days Scalp: 7 days Eyebrow: 5-7 days Foot/sole: 12-14 days Please monitor for signs and symptoms of infection including: redness, warmth, drainage, discharge. Please return to ED if these signs or symptoms occur, new signs or symptoms develop or if condition worsens in anyway. Prescriptions: Cephalexin [Keflex] 500 mg PO Q6HR 3 Days #12 cap Is patient prescribed a controlled substance at d/c from ED?: No Referrals: Saturnino Fairchild MD [Primary Care Provider] - 1-2 days
== END 2019-06-26 01:59 | disposition home or self-care (01) ==
LOC: EC 23:12
DX: S81.812A Laceration without foreign body, left lower leg, initial encounter (principal); J45.909 Unspecified asthma, uncomplicated; K21.9 Gastro-esophageal reflux disease without esophagitis; H91.90 Unspecified hearing loss, unspecified ear; Z79.899 Other long term (current) drug therapy; Z91.048 Other nonmedicinal substance allergy status; Z96.643 Presence of artificial hip joint, bilateral; Z96.612 Presence of left artificial shoulder joint; Z96.611 Presence of right artificial shoulder joint; W22.8XXA Striking against or struck by other objects, initial encounter
CPT/HCPCS: 99283; 12002; J2001

== ENCOUNTER 2021-05-15 18:40 | Emergency (ER) | payer MEDICARE, BC ==
[2021-05-15 19:04] VITALS: TEMP 98.9
[2021-05-15] MEDS ORDERED: LIDOCAINE 1%-EPI 1:100,000 20 ML VIAL SQ STA (19:17)
[2021-05-15] MEDS ORDERED: GELATIN SPONGE,ABSORB (LARGE) 1 EACH SPONGE TOPICAL STA (19:26)
--- NOTE | 2021-05-15 19:31 | ED ---
Wound/Laceration HPI - General Chief Complaint: Wound/Laceration Stated Complaint: fall, leg lac Time Seen by Provider: 05/15/21 19:13 Source: patient Mode of arrival: wheelchair Limitations: physical limitation - History of Present Illness Initial Comments: 85-year-old female presents to emergency Department with a chief complaint of laceration. Patient reports she was attempting to get on her golf cart, she lost her balance and scraped the anterior aspect of the left lower extremity along the side of the golf cart. Denies any head injuries any blood thinners. Her tetanus is up-to-date. Patient reports there is a burning sensation at the injured site. The states this is common for her because she has very thin skin. Patient denies any paresthesias distal to the injury. - Related Data Home Medications Medication Instructions Recorded Confirmed Cholecalciferol [Vitamin D3 (25 2,000 unit PO DAILY 12/05/15 03/11/19 Mcg = 1000 Iu)] HYDROcodone/APAP 5-325MG [[place] 1 tab PO Q4-6H PRN 12/05/15 03/11/19 5-325] Omeprazole [PriLOSEC] 20 mg PO DAILY 12/05/15 03/11/19 traMADol HCL [Tramadol HCl] 50 mg PO BID PRN 12/06/15 03/11/19 ALPRAZolam [Xanax] 0.25 mg PO HS PRN 03/11/19 03/11/19 Albuterol Inhaler (Mhu) [Ventolin 2 puff INHALATION RT-Q6H PRN 03/11/19 03/11/19 Hfa Inhaler (Mhu)] Albuterol Nebulized [Ventolin 2.5 mg INHALATION RT-Q6H PRN 03/11/19 03/11/19 Nebulized] Aspirin [Adult Low Dose Aspirin EC] 81 mg PO DAILY PRN 03/11/19 03/11/19 Oxybutynin Chloride 5 mg PO BID 03/11/19 03/11/19 Potassium Chloride [Klor-Con 20] 20 meq PO BID 03/12/19 03/12/19 Previous Rx's Medication Instructions Recorded Fluticasone Nasal [place] [Flonase 2 spray EA NOSTRIL DAILY #1 device 03/12/19 Nasal [place]] Loratadine [Claritin] 10 mg PO DAILY #0 tab 03/12/19 Naproxen [Naprosyn] 250 mg PO BID #10 tab 03/12/19 Cephalexin [Keflex] 500 mg PO Q6HR 3 Days #12 cap 06/26/19 Allergies Allergy/AdvReac Type Severity Reaction Status Date / Time adhesive tape AdvReac Unknown Verified 05/15/21 19:05 Review of Systems ROS Statement: Those systems with pertinent positive or pertinent negative responses have been documented in the HPI. ROS Other: All systems not noted in ROS Statement are negative. Past Medical History Past Medical History: Asthma, GERD/Reflux, Hearing Disorder / Deafness, Hypertension, Osteoarthritis (OA), Rheumatoid Arthritis (RA) History of Any Multi-Drug Resistant Organisms: None Reported Past Surgical History: Back Surgery, Cholecystectomy, Hysterectomy, Joint Replacement, Orthopedic Surgery Additional Past Surgical History / Comment(s): bilateral hip replacements, bilateral shoulder replacements, bilateral knee replacements, back surgery, SHOULDER, BILAT KNEE bilateral cataract surgery left hand surgery, carpal tunnel surgery Past Anesthesia/Blood Transfusion Reactions: Motion Sickness, Postoperative Nausea & Vomiting (PONV) Past Psychological History: No Psychological Hx Reported Smoking Status: Never smoker Past Alcohol Use History: None Reported Past Drug Use History: None Reported - Past Family History Father Additional Family Medical History / Comment(s): Father is with history of osteoarthritis and rheumatoid arthritis. Sister(s) Additional Family Medical History / Comment(s): Patient has one sister with rheumatoid arthritis. Patient does not have any brothers. Patient has one daughter with history of thyroid cancer. Patient has one son with hypertension and one with no major medical problems. Mother Family Medical History: Coronary Artery Disease (CAD) Additional Family Medical History / Comment(s): Mother at age 72 from heart failure. General Exam Limitations: physical limitation General appearance: alert, in no apparent distress Head exam: Present: atraumatic, normocephalic, normal inspection Eye exam: Present: normal appearance, PERRL, EOMI Pupils: Present: normal accommodation ENT exam: Present: normal exam, normal oropharynx, mucous membranes moist Neck exam: Present: normal inspection, full ROM. Absent: tenderness, lymphadenopathy Respiratory exam: Present: normal lung sounds bilaterally. Absent: respiratory distress Cardiovascular Exam: Present: regular rate, normal rhythm, normal heart sounds. Absent: systolic murmur Extremities exam: Present: full ROM, tenderness, normal capillary refill, other (Palpable DP and PT). Absent: normal inspection (Large area of tissue avulsion noted on the anterior aspect of the left lower extremity. Measuring approximately 10 x 7 cm.), pedal edema, joint swelling, calf tenderness Back exam: Present: normal inspection, full ROM. Absent: tenderness, CVA tenderness (R), CVA tenderness (L) Neurological exam: Present: alert, oriented X3 Psychiatric exam: Present: normal affect, normal mood Skin exam: Present: warm, dry, intact, normal color Course Vital Signs 05/15/21 18:58 Temperature 98.9 F Pulse Rate 80 Respiratory 20 Rate Blood Pressure 137/82 O2 Sat by Pulse 95 Oximetry Procedures - Laceration Laceration #1 Consent Obtained: verbal consent Indication: laceration Site: lower extremity Size (cm): 5 Description: avulsion, clean Depth: simple, single layer Sedation/Analgesia: none Anesthetic Used: lidocaine 1%, with epi Anesthesia Technique: local infiltration Amount (mls): 3 Pre-repair: irrigated extensively, deep structures intact Type of Sutures: nylon Size of Sutures: 4-0 Number of Sutures: 5 Technique: simple, interrupted Patient Tolerated Procedure: well, no complications Medical Decision Making - Medical Decision Making 85-year-old female presents to emergency Department with a chief complaint of fall and laceration to leg. On physical examination, patient has a laceration with a skin avulsion measuring approximately 107 cm. Laceration site was repaired with 5 sutures after thorough irrigation. Gelfoam was applied with a dressing on top. Patient was advised to follow-up with her primary care physician for wound check. There were advised to return for suture removal in 14 days. Case discussed with physician. Disposition Clinical Impression: Laceration, Fall, Skin avulsion Disposition: HOME SELF-CARE Condition: Stable Instructions (If sedation given, give patient instructions): Skin Avulsion (ED) Additional Instructions: Please return to the emergency room in 14 days to have sutures removed. Please watch for any signs of infection which may include increased pain, swelling, redness, fever or chills. Please return to emergency room for any signs of infection do occur. Please use clean soap and water over the area to prevent scabbing over your stitches. Please leave wound covered for the first 24-48 hours and then leave wound open to air. Please return to the emergency room for any other concerns. Is patient prescribed a controlled substance at d/c from ED?: No Referrals: Saturnino Fairchild MD [Primary Care Provider] - 1-2 days Time of Disposition: 19:53
[2021-05-15] MEDS ORDERED: ACET/COD 300 MG/30 MG STARTER PACK 6 TAB BTL PO STA (20:07)
[2021-05-15 20:18] VITALS: BP 122/62; PULSE 68; RESP 18
== END 2021-05-15 20:18 | disposition home or self-care (01) ==
LOC: EC 18:40
DX: S81.812A Laceration without foreign body, left lower leg, initial encounter (principal); J45.909 Unspecified asthma, uncomplicated; I10 Essential (primary) hypertension; K21.9 Gastro-esophageal reflux disease without esophagitis; M06.9 Rheumatoid arthritis, unspecified; Z79.1 Long term (current) use of non-steroidal anti-inflammatories (NSAID); Z79.82 Long term (current) use of aspirin; Z79.51 Long term (current) use of inhaled steroids; Z96.643 Presence of artificial hip joint, bilateral; Z96.612 Presence of left artificial shoulder joint; Z96.653 Presence of artificial knee joint, bilateral; V86.99XA Unspecified occupant of other special all-terrain or other off-road motor vehicle injured in nontraffic accident, initial encounter
CPT/HCPCS: 12002; 99283

== ENCOUNTER 2021-05-22 14:58 | Emergency (ER) | payer MEDICARE, BC ==
[2021-05-22 16:02] VITALS: BP 116/73; PULSE 85; RESP 20; TEMP 99.2
[2021-05-22] MEDS ORDERED: cefTRIAXone 1,000 MG VIAL (IM USE) IM STA (17:21)
[2021-05-22] MEDS ORDERED: SULFAMETH-TMP DS STARTER PACK 2 TAB BTL PO STA (17:42)
--- NOTE | 2021-05-22 17:44 | ED ---
General Adult HPI - General Chief complaint: Fall Stated complaint: Fall,Arm lac Time Seen by Provider: 05/22/21 16:36 Source: patient Mode of arrival: ambulatory Limitations: no limitations - History of Present Illness Initial comments: 85-year-old female presents to the emergency room for a chief complaint of skin tear and wound. Patient reports today she got her arm was caught between a mattress and headboard and it caused a skin tear to her left hand and right forearm. Patient also has a wound to the left lower leg. He states that about a week ago she was trying to get into a golf cart and caused a skin tear to her leg.. Patient had Gelfoam applied to this about a week ago with some stitches. She went to her primary care doctor's office and they could not get it off. Patient was going to keep it on for a few more days.Patient has no other complaints at this time including shortness of breath, chest pain, abdominal pain, nausea or vomiting, headache, or visual changes. - Related Data Home Medications Medication Instructions Recorded Confirmed Cholecalciferol [Vitamin D3 (25 2,000 unit PO DAILY 12/05/15 03/11/19 Mcg = 1000 Iu)] HYDROcodone/APAP 5-325MG [[place] 1 tab PO Q4-6H PRN 12/05/15 03/11/19 5-325] Omeprazole [PriLOSEC] 20 mg PO DAILY 12/05/15 03/11/19 traMADol HCL [Tramadol HCl] 50 mg PO BID PRN 12/06/15 03/11/19 ALPRAZolam [Xanax] 0.25 mg PO HS PRN 03/11/19 03/11/19 Albuterol Inhaler (Mhu) [Ventolin 2 puff INHALATION RT-Q6H PRN 03/11/19 03/11/19 Hfa Inhaler (Mhu)] Albuterol Nebulized [Ventolin 2.5 mg INHALATION RT-Q6H PRN 03/11/19 03/11/19 Nebulized] Aspirin [Adult Low Dose Aspirin EC] 81 mg PO DAILY PRN 03/11/19 03/11/19 Oxybutynin Chloride 5 mg PO BID 03/11/19 03/11/19 Potassium Chloride [Klor-Con 20] 20 meq PO BID 03/12/19 03/12/19 Previous Rx's Medication Instructions Recorded Fluticasone Nasal [place] [Flonase 2 spray EA NOSTRIL DAILY #1 device 03/12/19 Nasal [place]] Loratadine [Claritin] 10 mg PO DAILY #0 tab 03/12/19 Naproxen [Naprosyn] 250 mg PO BID #10 tab 03/12/19 Cephalexin [Keflex] 500 mg PO Q6HR 3 Days #12 cap 06/26/19 Sulfamethox-Tmp 800-160Mg [Bactrim 1 tab PO Q12HR #20 tab 05/22/21 DS 800-160 mg] Allergies Allergy/AdvReac Type Severity Reaction Status Date / Time adhesive tape AdvReac Unknown Verified 05/22/21 16:02 Review of Systems ROS Statement: Those systems with pertinent positive or pertinent negative responses have been documented in the HPI. ROS Other: All systems not noted in ROS Statement are negative. Past Medical History Past Medical History: Asthma, GERD/Reflux, Hearing Disorder / Deafness, Hypertension, Osteoarthritis (OA), Rheumatoid Arthritis (RA) History of Any Multi-Drug Resistant Organisms: None Reported Past Surgical History: Back Surgery, Cholecystectomy, Hysterectomy, Joint Replacement, Orthopedic Surgery Additional Past Surgical History / Comment(s): bilateral hip replacements, bilateral shoulder replacements, bilateral knee replacements, back surgery, SHOULDER, BILAT KNEE bilateral cataract surgery left hand surgery, carpal tunnel surgery Past Anesthesia/Blood Transfusion Reactions: Motion Sickness, Postoperative Nausea & Vomiting (PONV) Past Psychological History: No Psychological Hx Reported Smoking Status: Never smoker Past Alcohol Use History: None Reported Past Drug Use History: None Reported - Past Family History Father Additional Family Medical History / Comment(s): Father is with history of osteoarthritis and rheumatoid arthritis. Sister(s) Additional Family Medical History / Comment(s): Patient has one sister with rheumatoid arthritis. Patient does not have any brothers. Patient has one daughter with history of thyroid cancer. Patient has one son with hypertension and one with no major medical problems. Mother Family Medical History: Coronary Artery Disease (CAD) Additional Family Medical History / Comment(s): Mother at age 72 from heart failure. General Exam - General Exam Comments Initial Comments: 2 cm skin tear over the dorsal left fourth and fifth metacarpal heads. No deep wound. Wound is irrigated and Steri-Strips applied. Patient has an 6 cm superficial skin tear over the right dorsal forearm. No deep wound requiring stitches. No erythema or cellulitis. Left leg: Patient has a 4 cm x 4 cm wound of the left lower leg. There is mild surrounding erythema consistent with cellulitis. No abscess. Gelfoam is in the wound. Limitations: no limitations General appearance: alert, in no apparent distress Head exam: Present: atraumatic, normocephalic, normal inspection Eye exam: Present: normal appearance, PERRL, EOMI. Absent: scleral icterus, conjunctival injection, periorbital swelling ENT exam: Present: normal exam, mucous membranes moist Neck exam: Present: normal inspection. Absent: tenderness, meningismus, lymphadenopathy Respiratory exam: Present: normal lung sounds bilaterally. Absent: respiratory distress, wheezes, rales, rhonchi, stridor Cardiovascular Exam: Present: regular rate, normal rhythm, normal heart sounds. Absent: systolic murmur, diastolic murmur, rubs, gallop, clicks Course Vital Signs 05/22/21 15:58 Temperature 99.2 F Pulse Rate 85 Respiratory 20 Rate Blood Pressure 116/73 O2 Sat by Pulse 96 Oximetry Medical Decision Making - Medical Decision Making Steristrips applied to the left hand and right forearm. wound of left lower leg does have surrounding cellulitis. I was able to remove most of the old gelfoam. Recommended patient soak wound to remove the rest at home. She was started on IM and oral antibiotics. Will be dc home to follow up with wound care and primary care. Will return here for worsening symptoms such as spreading redness. Pt also evaluated by Dr Kent. Disposition Clinical Impression: Skin tear, Cellulitis, Leg wound, left Disposition: HOME SELF-CARE Condition: Good Instructions (If sedation given, give patient instructions): Cellulitis (ED), Skin Tear (ED) Additional Instructions: Please soak the wound daily to remove any remaining Gelfoam. Please follow-up with your primary care doctor and wound care. If symptoms are worsening or you are getting fevers return to the emergency room. Wound care center: Prescriptions: Sulfamethox-Tmp 800-160Mg [Bactrim DS 800-160 mg] 1 tab PO Q12HR #20 tab Is patient prescribed a controlled substance at d/c from ED?: No Referrals: Saturnino Fairchild MD [Primary Care Provider] - 1-2 days Time of Disposition: 17:42
[2021-05-22] MEDS ORDERED: DIPH,PERTUS(ACELL)TETVAC-LF 0.5 ML VIAL IM ONE (17:45)
== END 2021-05-22 19:19 | disposition home or self-care (01) ==
LOC: EC 14:58
DX: S51.812A Laceration without foreign body of left forearm, initial encounter (principal); S61.412A Laceration without foreign body of left hand, initial encounter; S81.802A Unspecified open wound, left lower leg, initial encounter; L03.116 Cellulitis of left lower limb; K21.9 Gastro-esophageal reflux disease without esophagitis; J45.909 Unspecified asthma, uncomplicated; I10 Essential (primary) hypertension; H91.90 Unspecified hearing loss, unspecified ear; Z91.09 Other allergy status, other than to drugs and biological substances; Z79.899 Other long term (current) drug therapy; W23.1XXA Caught, crushed, jammed, or pinched between stationary objects, initial encounter; Y92.009 Unspecified place in unspecified non-institutional (private) residence as the place of occurrence of the external cause
CPT/HCPCS: 90715; 99283; 96372; 90471; J0696